=== PATIENT | male | born 1965 | race Caucasian/White ===

== ENCOUNTER 2021-08-01 10:01 | Emergency (ER) | payer OTHER ==
[2021-08-01] MEDS ORDERED: ceFAZolin SODIUM IV Push 1 GM VIAL. IVP ONE (10:15)
[2021-08-01] MEDS ORDERED: ONDANSETRON PF 4 MG/2 ML VIAL. IVP ONE (10:15)
[2021-08-01] MEDS ORDERED: MORPHINE SULFATE 4 MG/ML INJ. IVP ONE (10:15)
--- NOTE | 2021-08-01 10:17 | PHYS DOC ---
Past Medical History Laceration Repair Lac Repair Indication: [] Procedure: The patient was placed in the appropriate position and anesthesia around the [LAC WAS/WERE] [ANESTHESIA]. The area was then [CLEANSED/DEBRIDED]. The laceration was [LAC CLOSURE]. [ADDITIONAL LACS] The wound area was then dressed with [WOUND COVERING]. Total repaired wound length: [TOTAL REPAIR LENGTH]. Other Items: [OTHER ITEMS] The patient tolerated the procedure [TOLERATED]. Complications: [COMPLICATIONS]. General Adult EDM: Chief Complaint: FINGER INJURY HPI: HPI: Patient is a 56 year old male who presents with injuries of his left hand and fingers. Injury occurred at home, shortly prior to arrival. He reports that he was working in his wood shop and got his hand stuck and "sucked in" into a rotor. He pulled his hand out on his own. He has injuries of all digits of his left hand with exception of the pinky finger. He denies numbness or tingling. He is unsure of tetanus status. He denies other injury or trauma. He denies chest pain, dyspnea, headache, neck or back pain, denies pain of the remainder of the left upper extremity. He is right-hand dominant. No other complaints re ported. Review of Systems: Review of Systems: Constitutional: Denies fever or chills. [] Respiratory: Denies cough or shortness of breath. [] Cardiovascular: Denies chest pain GI: Denies abdominal pain, nausea, vomiting Musculoskeletal: Multiple injuries of the left hand and digits of the left hand, including thumb, index, middle and ring fingers. Integument: Multiple wounds of the digits of the left hand. Neurologic: Denies headache, focal weakness or sensory changes. [] Psychiatric: Anxiety as it pertains to current illness and injury. [] Heart Score: C/O Chest Pain: No Risk Factors: Risk Factors: DM, Current or recent (<one month) smoker, HTN, HLP, family history of CAD, obesity. Risk Scores: Score 0 - 3: 2.5% MACE over next 6 weeks - Discharge Home Score 4 - 6: 20.3% MACE over next 6 weeks - Admit for Clinical Observation Score 7 - 10: 72.7% MACE over next 6 weeks - Early Invasive Strategies Current Medications: Current Medications Medications (Trade) Dose Ordered Sig/Ry Start Time Stop Time Status Last Admin Dose Admin Cefazolin Sodium (Ancef) 1 gm 1X ONCE 08/01/21 10:15 08/01/21 10:16 UNV Morphine Sulfate (Morphine Sulfate) 4 mg 1X ONCE 08/01/21 10:15 08/01/21 10:16 UNV Ondansetron HCl (Zofran) 4 mg 1X ONCE 08/01/21 10:15 08/01/21 10:16 UNV Physical Exam: PE: Constitutional: Well developed, well nourished, no acute distress, non-toxic appearance. He is anxious and appears to be in pain. HENT: Normocephalic, atraumatic Eyes: Sclera clear, anicteric Neck: Trachea is midline Cardiovascular: Well-perfused appearing, +2 radial pulse of the left upper extremity. Lungs & Thorax: Respirations are nonlabored. Skin: Large skin avulsion of the left thumb. Amputation of the distal phalanx/distal left index finger, amputation is complete. Partial amputation of the left middle finger, at the DIP joint. Significant maceration and lacer ation/skin avulsions associated with this. Lacerations and abrasions of the left ring finger, with proximal nailbed injury and laceration. Lacerations do include the pads of the left middle and ring fingers. Mild oozing noted, no brisk or pulsatile bleeding noted. Extremities: Injury of the left hand and digits, as detailed above. Lacerations and amputations/partial amputations as noted above. Neurologic: He is awake, alert, oriented x3, speech is clear and fluent, ambulatory to steady gait. Normal motor strength of the left upper extremity, with the exception of the distal digits, secondary to injury, as detailed above. Psychologic: Anxious. [] EKG: EKG: [] Radiology/Procedures: Radiology/Procedures: IMAGING REPORT Signed PATIENT: SANIYA RIVERA ACCOUNT: [id number] : 1965 LOCATION: ER AGE: 56 SEX: M EXAM STATUS: REG ER ORD. PHYSICIAN: COURTNEY WESTBROOK DO REASON: trauma , left hand finger amputation PROCEDURE: HAND LEFT 3V EXAM: 3 views left hand DATE: 08/01/2021 10:18 AM INDICATION: Reason: trauma , left hand finger amputation / Spl. Instructions: / History: . COMPARISON: No Prior FINDINGS/ IMPRESSION: Amputation with a transverse fracture through the base of the index and long fi nger distal phalanx and transverse fracture through the tuft of the ring finger distal phalanx. Marked associated soft tissue changes. Electronically signed by: Federico Ceballos MD (08/01/2021 11:17 AM) [id number] DICTATED and SIGNED BY: FEDERICO CEBALLOS MD DATE: 08/01/21 [id number] 0 Course & Med Decision Making: Course & Med Decision Making Pertinent Labs and Imaging studies reviewed. (See chart for details) The patient is given IV Ancef. Tetanus is updated. He is given IV morphine and Dilaudid. He is given a dose of p.o. Adel. Extensive wound care was performed by me. I copiously irrigated and cleaned his wounds. I performed extensive debridement of his wounds, extensive exploration of his wounds. Lengthy laceration repair was performed by me. He tolerated all of this well. Please see associated laceration repair note. There is no hand surgery available at this facility. I contacted [facility] and spoke with the Dr. Sabillon there, who reports that if the wounds are closed and the partial amputations are reattached at this time, he would not intervene emergently, would not recommend emergency surgery or admission. The patient's pain appears to be well controlled at this time. The patient is recommended to contact his office on Wednesday for follow-up. [facility] fax us the information for his office, [facility] [employer], phone number is [phone]. This information is explicitly given to the patient and his . I dressed his wounds. He was placed in a volar splint and given a sling for comfort. I gave explicit and strict instructions for home care/wound care. I discussed very strict return precautions. I told him he may return immediately for any pr oblems complications or severe pain, recurrent bleeding, new injury, weakness, any signs of infection or any other concerns. He agrees with the plan of care. I recommend he contact his PCP as well. Joe Disclaimer: Joe Disclaimer: This electronic medical record was generated, in whole or in part, using a voice recognition dictation system. Laceration Repair Lac Repair Indication: Open fractures of distal phalanges of the left hand. Partial amputations and lacerations of the digits of the left hand. Procedure: The patient was placed in the appropriate position, seated on the ED gurney. Local anesthesia was achieved using 1% lidocaine without epinephrine, utilizing digital block. Adequate anesthesia was achieved. The area was then cleaned with Betadine and copiously irrigated with sterile normal saline. All of the wounds were explored. No visible bone was noted. No visible tendon laceration is noted. Minimal wound contamination was noted, which was cleared with irrigation and cleaning. No large foreign bodies are noted. The laceration of the left middle finger was closed, utilizing simple interrupted sutures, utilizing 5-0 and 4-0 Ethilon simple interrupted sutures. I was able to reattach the partially amputated digit, without difficulty. They did remain some mildly exposed fingerpad tissue. I did sharply debride this wound. The wound was approximated as much as was feasible given the injury. Hemostasis was achieved. A total of 18 sutures were placed on this finger. For the ring finger, a total of 6 simple interrupted 5-0 Ethilon sutures were placed. Sharp debridement was utilized. No visible tendon is noted. No large foreign bodies are noted. I did repair the nailbed, and I did tack down the proximal nail to the cuticle. Adequate hemostasis was achieved. The wound was closed as much as is feasible for this injury. They did remain a small amount of fingerpad tissue exposed. For the index finger amputation, IV anesthetized and cleaned and irrigated the wound copiously, there was no skin to reattach. No other for mal wound repair was performed. There was no exposed bone or tendon noted at the stump of this amputation. For the thumb avulsion, I did anesthetize, copiously clean and irrigate this wound, and I did perform some sharp debridement. No formal wound closure was able to be performed, as skin was avulsed. Other Items: This was a complex, lengthy laceration repair, wound repair, partial amputation repair. Sharp debridement was required. Copious irrigation was performed. The wounds were closed as much as is feasible given the injury. For the index finger amputation as well as the left thumb avulsion, I dressed these with Vaseline gauze. I did dress the other wounds with Vaseline gauze. I placed 4 x 4's and Kerlix around the wounds. He was placed in a volar splint to protect his hand and digits. He was given a sling for comfort. The patient tolerated the procedure well. Complications: None. Departure Departure Impression: Primary Impression: Open fracture of distal phalanx of left middle finger Additional Impressions: Traumatic amputation of tip of left index finger Avulsion of skin of left thumb Open displaced fracture of distal phalanx of left ring finger Laceration of multiple sites of left hand and fingers Disposition: 01 HOME / SELF CARE / HOMELESS Condition: STABLE Patient Instructions: Crush Injury, Fingers or Toes, Finger Avulsion, Finger Fracture Additional Instructions: Take the antibiotics as directed. Use the pain medication as directed. Keep your wounds clean and dry. Elevate your hand at rest to prevent swelling and pain. Return to the ER immediately for redness, severe pain, red streaks, green or yellow drainage from your wounds, fever 100.4 or higher, or any other concerns. Please contact Dr. Sabillon at [facility] at [phone]. Call the office on Wednesday to arrange for follow up next week. Scripts Cephalexin (KEFLEX) 500 Mg Capsule 1 CAP PO BID for 7 Days, #14 CAP Prov: COURTNEY WESTBROOK DO 08/01/21 Hydrocodone Bit/Acetaminophen (HYDROCODONE-APAP 5-325 ) 1 Tab Tablet 1 TAB PO PRN Q6HRS PRN for PAIN, #24 TAB 0 Refills Prov: COURTNEY WESTBROOK DO 08/01/21 COURTNEY WESTBROOK DO Aug 01, 2021 10:17
[2021-08-01 10:26] LABS: BASO # 0.1 x10^3/uL (0.0-0.2); BASO % 1 % (0-3); EOS # 0.2 x10^3/uL (0.0-0.7); EOS % 2 % (0-3); HEMATOCRIT 46.7 % (39.0-53.0); HEMOGLOBIN 15.7 g/dL (13.0-17.5); LYMPH # 4.4 x10^3/uL (1.0-4.8); LYMPH % 44 % (24-48); MEAN CORPUSCULAR HEMOGLOBIN 32 pg (25-35); MEAN CORPUSCULAR HGB CONC 34 g/dL (31-37); MEAN CORPUSCULAR VOLUME 96 fL (79-100); MONO # 0.9 x10^3/uL (0.0-1.1); MONO % 9 % (0-9); NEUT # 4.4 x10^3/uL (1.8-7.7); NEUT % 44 % (31-73); PLATELET COUNT 222 x10^3/uL (140-400); RED BLOOD COUNT 4.85 x10^6/uL (4.30-5.70); RED CELL DISTRIBUTION WIDTH 14.2 % (11.5-14.5)
[2021-08-01 10:41] LABS: CALCIUM 8.7 mg/dL (8.5-10.1); CREATININE 1.1 mg/dL (0.7-1.3); GFR 69.2; POTASSIUM 4.2 mmol/L (3.5-5.1)
[2021-08-01] MEDS ORDERED: HYDROmorphone 2 MG/ML VIAL IVP ONE (11:00)
[2021-08-01] MEDS ORDERED: LIDOCAINE 1% Multi-Dose 20 ML VIAL. ONE (11:09)
[2021-08-01] MEDS ORDERED: LIDOCAINE 1% Multi-Dose 20 ML VIAL. INJ ONE (11:15)
--- NOTE | 2021-08-01 11:19 | RAD ---
EXAM: 3 views left hand DATE: 08/01/2021 10:18 AM INDICATION: Reason: trauma , left hand finger amputation / Spl. Instructions: / History: . COMPARISON: No Prior FINDINGS/ IMPRESSION: Amputation with a transverse fracture through the base of the index and long finger distal phalanx an d transverse fracture through the tuft of the ring finger distal phalanx. Marked associated soft tiss ue changes. Electronically signed by: Federico Flores MD (08/01/2021 11:17 AM) [id number]
[2021-08-01] MEDS ORDERED: HYDROcodone/APAP 5/325MG 1 TAB TABLET PO ONE (14:00)
[2021-08-01] MEDS ORDERED: TETANUS AND DIPHTHERIA TOX/PF 0.5 ML DISP.SYRIN. VAX IM ONE (14:00)
[2021-08-01] MEDS ORDERED: CEPH500C PO (14:03)
[2021-08-01] MEDS ORDERED: HYDR-2761 PO (14:03)
== END 2021-08-01 15:01 | disposition home or self-care (01) ==
LOC: ER 10:57
DX: S62.635B Displaced fracture of distal phalanx of left ring finger, initial encounter for open fracture (principal); S62.633B Displaced fracture of distal phalanx of left middle finger, initial encounter for open fracture; S61.219A Laceration without foreign body of unspecified finger without damage to nail, initial encounter; S61.412A Laceration without foreign body of left hand, initial encounter; Y28.8XXA Contact with other sharp object, undetermined intent, initial encounter; Y93.89 Activity, other specified; Y92.89 Other specified places as the place of occurrence of the external cause; Y99.8 Other external cause status
CPT/HCPCS: 11760; 13131; 29125; 36415; 73130; 80048; 85025; 90471; 90714; 96374; 96375; 99285; J0690; J1170; J2270; J2405; J3490; 99284-25